=== PATIENT | male | born 1970 | race Caucasian/White ===

== ENCOUNTER 2019-06-26 14:22 | Inpatient (IN) | payer BC ==
[~2019-06-26] VITALS: Ht 175.3 cm; Wt 145.1 kg
[2019-06-28] MEDS ORDERED: TOPIRAMATE50 MG PO (08:04)
[2019-06-28] MEDS ORDERED: ZESTORETIC 20-1 EACH PO (08:05)
[2019-06-28] MEDS ORDERED: ROSUVASTATIN CA20 MG PO (08:05)
== END 2019-07-01 13:34 | disposition left against medical advice (07) | DRG 622 ==
LOC: ER 14:22 → MEDJ 06-27 11:17
PROVIDERS: ADMIT Internal Medicine
PROC: BQ3FYZZ Magnetic Resonance Imaging (MRI) of Left Lower Leg using Other Contrast (ICD-10-PCS; 2019-06-27)
PROC: 0JBR0ZZ Excision of Left Foot Subcutaneous Tissue and Fascia, Open Approach (ICD-10-PCS; principal; 2019-06-28)
PROC: B246ZZZ Ultrasonography of Right and Left Heart (ICD-10-PCS; 2019-06-29)
DX: E11.628 Type 2 diabetes mellitus with other skin complications (principal); A41.01 Sepsis due to Methicillin susceptible Staphylococcus aureus; R65.20 Severe sepsis without septic shock; I50.31 Acute diastolic (congestive) heart failure; L97.422 Non-pressure chronic ulcer of left heel and midfoot with fat layer exposed; L03.116 Cellulitis of left lower limb; I31.3 Pericardial effusion (noninflammatory); I11.0 Hypertensive heart disease with heart failure; E11.40 Type 2 diabetes mellitus with diabetic neuropathy, unspecified; E86.0 Dehydration; E87.8 Other disorders of electrolyte and fluid balance, not elsewhere classified; E66.09 Other obesity due to excess calories; N17.8 Other acute kidney failure; Z79.4 Long term (current) use of insulin